=== PATIENT | female | born 1995 | race Caucasian/White ===

== ENCOUNTER 2016-12-10 19:33 | Emergency (ER) | payer SELFPAY ==
[~2016-12-10] VITALS: Ht 149.9 cm; Wt 35.5 kg
[2016-12-10 20:02] VITALS: Ht 149.9 cm; Wt 35.5 kg
== END 2016-12-10 21:23 | disposition left against medical advice (07) ==
LOC: E/R 19:33
DX: Z53.21 Procedure and treatment not carried out due to patient leaving prior to being seen by health care provider (principal)